=== PATIENT | female | born 1950 | race Caucasian/White ===

== ENCOUNTER 2019-04-10 07:42 | Day surgery (SDC) | payer SELFPAY ==
[2019-04-05 11:10] LABS: Hematocrit 36.8 % (37-47); Hemoglobin 12.6 g/dL (12.0-15.0); Mean Corp Hgb Conc 34.2 g/dL (32-36); Mean Corpuscular Hgb 31.7 pg (27.0-32.0); Mean Corpuscular Volume 92.7 fL (81-99); Mean Platelet Vol. 7.9 fl (6.2-12.0); Platelet Count 129 K/mm3 (150-450); RBC Distribution Width CV 13.2 % (11.6-14.6); RBC Distribution Width SD 45.1 fl (35.1-43.9); Red Blood Count 3.97 M/mm3 (4.2-5.4); White Blood Count 5.4 K/mm3 (4.4-11.0)
[2019-04-05 11:18] LABS: International Normalized Ratio 1.1; Prothrombin Time (Protime)PT. 13.9 SECONDS (11.7-14.9)
[2019-04-05 11:19] LABS: Partial Thromboplast Time 30.9 Seconds (24.1-36.2)
[2019-04-05 11:33] LABS: AST(SGOT) 11 U/L (15-37); Alanine Aminotransfer ALT/SGPT 12 U/L (13-56); Albumin, Serum 3.7 g/dL (3.2-5.0); Alkaline Phosphatase 58 U/L (45-117); Anion Gap 3 (5-15); BUN 13 mg/dL (7-18); BUN/Creat Ratio 20.4 RATIO (10-20); Chloride 107 mmol/L (98-107); Creatinine, Serum 0.64 mg/dL (0.55-1.02); EST Glomerular Filtration Rate 99 mL/min (>60); Est Glom Filt Rate - Afr Amer 120 mL/min (>60); Globulin 3.8 g/dL (2.2-4.2); Glucose 87 mg/dL (74-106); Potassium 3.8 mmol/L (3.5-5.1); Protein, Total 7.5 g/dL (6.4-8.2); Sodium Level 138 mmol/L (136-145)
--- NOTE | 2019-04-09 19:25 | HP.PCM_ITS ---
History and Physical Date of Admission: 04/10/19 Surgical History and Physical Latasha Browne, a 68 year old female 0 0 0 0 2, presents for Vaginal Hysterectomy and AP Repair on april 10, 2019 at 10:00. -- Pelvic Pressure and Low Back Pain -- Bulge from vagina which began 6mos ago. Latasha claims it started gradually and has been present constantly for 6 months. It occurs all the time. It is located in the vagina. Latasha characterizes the quality not painful. Severity is severe and worsening. It is aggravated by any activity. Associated signs and symptoms are bulge from vagina. MEDICATIONS HISTORY: Current medications prescribed by our practice are: 1. Estrace 0.01% (0.1 mg/gram) vaginal cream, one half gram per vagina twice weekly at ALLERGIES: No Known Drug Allergies Infections - Chicken pox childhood Illnesses - Arthritis Accidents - None Hospitalizations - see surgery Review of Systems: GENERAL - Denies fever, or chills SKIN - Denies skin changes EYES - Denies visual changes EARS - Denies difficulty hearing NOSE - Denies nasal congestion or bleeding MOUTH - Denies sore throat or difficulty swallowing NECK - Denies pain or swelling RESPIRATORY - Denies shortness of breath or wheezing CARDIOVASCULAR - Denies palpitations or chest pain GASTROINTESTINAL - Denies nausea, vomiting, diarrhea, constipation GENITOURINARY - Denies dysuria, frequency of urination, incontinence of urine MUSCULOSKELETAL - Denies joint or muscle pain NEUROLOGICAL - Denies localized numbness or weakness PSYCHIATRIC - Denies depression or anxiety ENDOCRINE - Denies heat or cold intolerance, weight loss or gain HEMATO-IMMUNOLOGIC - Denies excesive bleeding with cuts SOCIAL HISTORY: Alcohol Use - denies drinking Smoking - denies smoking Diet - balanced Diet Lifestyle - moderate stress lifestyle and Exercise - minimal Seat Belt Use - most of the time Employer - Unemployed Job Description - Housewife Illicit Drug Use - denies use of street drugs Sexual Activity - Spouse-Sig Other Name - Tavares Spouse-Sig Other Occupation - [employer] Children Name(s) - 2 Children adopted Control - postmenopausal FAMILY HISTORY: non-contributory MENSTRUAL HISTORY: LMP Known?- Postmenopausal PAST PREGNANCIES: Total Pregnancies - 0; Full Term Pregnancies - 0; Premature - 0; Abortions, Rand nery - 0; Abortions, Spontaneous - 0; Ectopics - 0; Multiple Births - 0; Living Children - 2 SURGICAL HISTORY: 1. Open Heart surgery to repair holes in heart 2. Laparoscopy ; Dr Stevens 3. Appendectomy 4. Benign mass removed from Rt armpit 5. Tonsillectomy PHYSICAL EXAM BP- 140/74 Sitting, Right arm, regular cuff Weight- 127.16029 lbs Height- 62 inch BMI:23.28 CONSTITUTIONAL - NAD, well nourished, and well developed SKIN - No rash, lesions, or ulcers HEENT - Normocephalic, PERRLA, EOMI NECK - No nodes, no nuchal rigidity and thyroid normal size and texture LYMPH NODES - Palpation of lymph nodes in neck and groins within normal limits LUNGS - CTA x2 without wheezes, crackles or rales CARDIAC - Regular rate and rhythm without rubs, murmurs, or gallops BREAST - No dominant masses, no tenderness, no axillary adenopathy, no nipple discharge, no skin changes ABDOMEN - Without hepatosplenomegaly, distention, masses, rebound, or guarding; normal bowel sounds; no hernias EXTREMITIES - No edema or calf tenderness NEUROLOGICAL - Cranial nerves II-XII grossly intact PSYCHIATRIC - A and O to time, place, person, mood and affect External Genital Vagina - non-tender without lesions Urethra/Urethral Meatus - non-tender Bladder - non-tender Vagina - loss of rugae and cystocele to introitus; mild rectocele Cervix - without cervical motion tenderness and has normal size and features without evident lesions and protrudes to within 2-3 cm of introitus Uterus - 5-6 cm in size, mobile and nontender Adnexa - clear without masses or tenderness ASSESSMENT/PLAN: 1. Uterovaginal Prolapse, Incomplete Discussed options including expectant management, pessary use, or proceeding with Vag Hyst and anterior (possible posterior) repair. Pt desires the surgery. Has used intravaginal estrogen.
[2019-04-10] VITALS (10 sets, daily range): BP systolic 97–121; BP diastolic 58–66; PULSE 55–72; RESP 14–16; TEMP 36.3–36.9; O2SAT 92–98; BMI 23.0
--- NOTE | 2019-04-10 10:10 | HYST_PTH ---
PATIENT: BHARAT HOLMAN LOC: [facility] [place] U#:[id number] AGE/SX: 68/F ROOM: RE04/10/[address]: Dr. Justo Valenzuela MD : [id number] BED: DIS: 04/11/2019 SPEC #: [id number] RECD: 04/10/19 13:33 STATUS: MICHELLE REOttoniel #: [id number] NEPTALI: 04/10/19 10:[address]: Justo Valenzuela DEPT: SURGICAL PATHOLOGY RECD BY: Lane Vaughn ENTERED: 04/10/19 13:39 SP TYPE: HYSTERECT OTHR DR: Dr. Odell Lew MD Tissues: Uterus, NOS Procedures: Surgery Specimen Level V HEADER OPERATION: Vaginal hysterectomy, anterior repair PRE-OP DIAGNOSIS: Incomplete uterovaginal prolapse, cystocele TISSUE SUBMITTED: Uterus, cervix, vaginal mucosa MICROSCOPIC DIAGNOSIS Uterus, hysterectomy: Cervix - squamous metaplasia and mild chronic inflammation. Endometrium - weakly proliferative to inactive endometrium. Focal simple and cystic hyperplasia without atypia. Moderate to marked chronic endometritis. Myometrium - Microscopic leiomyoma, capillary hemangioma and focal adenomyosis. Vaginal mucosa, anterior and posterior repair: Hyperkeratosis and minimal chronic inflammation. AM:vesta 04/12/19 COMMENT Case has been reviewed in consultation with Dr. Sheppard who concurs with the above diagnosis. IDC:SJ MICROSCOPIC DESCRIPTION Slides are reviewed. GROSS DESCRIPTION Received in fixative is one container labeled with the patient's name and designated uterus, cervix, vaginal mucosa. The specimen consists of a hysterectomy specimen consisting of uterus with cervix and detached pieces of mucosal tissue. The uterus with cervix weighs 30 gm and measures 9 x 3 x 2 cm. The serosal surface is cain, glistening. The ectocervical mucosa is unremarkable. The external os is oval in contour. The anterior endocervical canal measures up to 5 cm in length and the posterior endocervical canal measures up to 3.5 cm in length. The endocervical mucosa is cain, glistening and unremarkable. The triangular endometrial cavity measures 3 cm in length and up to 2 cm in width. The endometrium is congested without any mass lesion and measures <0.1 cm in thickness. Sections of the uterine wall do not reveal any mass lesion and it measures up to 1 cm in thickness. Also present in the container are two detached pieces of mucosal tissue measuring in aggregate 7 x 5 x 0.4 cm. No mucosal lesion is identified. Multiple instrumentation forrest are noted. Court Transcriber sections are submitted in seven cassettes as follows: 1 - anterior cervix, 2 - posterior cervix, 3 & 4 - anterior uterine wall, 5 & 6 - posterior uterine wall, 7 - detached mucosal tissue. / GORGE:vesta 04/10/19 More sections are submitted in two cassettes as follows: 8 - rest of the anterior endometrium, 9 - rest of the posterior endometrium. / GORGE:vesta 04/11/19 TC:5 CPT: 08328
--- NOTE | 2019-04-10 10:17 | PCM.OPRPT ---
Report of Operation Date of Procedure: 04/10/19 Pre-Operative Diagnosis: Incomplete Uterovaginal Prolapse, Cystocele Post-Operative Diagnosis: Incomplete Uterovaginal Prolapse, Cystocele Surgery/Procedure Performed:: Vaginal Hysterectomy and Anterior Repair Description of Surgical Findings:: 7 cm uterus with cervix protruding to the introitus. Cystocele which protruded to the introitus. Minimal rectocele. comic book writer: Nathan Hummel comic book writer: Pearl Palacios Type of Anesthesia:: General - Endotracheal Anesthesiologist: Devika Pollack Specimen's removed: Uterus and vaginal mucosa Drains: Toth to straight drain Estimated Blood Loss (mL): 100 cc Fluids Replaced: Crystalloid Description of Procedure: Surgeon: Justo Valenzuela MD, FACOG Indications: This is a 68-year-old patient who is been having problems with symptomatic uterovaginal prolapse. Conservative measures have not been helpful. Given this the patient desires that we proceed the above procedure. She has been counseled regarding the risk and indications of this procedure including the possibility of bleeding, infection, and injury to surrounding structures such as bowel bladder. All questions were answered. Procedure: Patient was taken to the operating room where after induction of general anesthesia she was placed in the dorsal lithotomy position and prepped and draped in the usual sterile fashion. A Toth catheter was placed. Anterior cervix was grasped with a tenaculum and anterior cervix circumscribed with cautery on a setting of 35 W coagulation. Anterior vaginal mucosa was undermined and anterior peritoneum was entered. The posterior aspect of the cervix was circumscribed with a knife and posterior peritoneum easily entered. Progressive bites were taken on either side of the uterine cervix and each pedicle ligated with 0 Vicryl suture. Superior pedicles were ligated ?2 with 0 Vicryl suture and sidewall pedicles were examined and oversewn where necessary with [id number] 0 Vicryl suture to achieve hemostasis. Posterior vaginal cuff was oversewn with running locked 0 Vicryl suture. Hemostasis was noted and peritoneum was closed in a pursestring fashion incorporating superior pedicles into the stitch. Attention was turned toward the anterior repair portion of the procedure. Anterior vaginal mucosa was undermined and divided and then imbricated toward the midline with interrupted 0 Vicryl sutures. Vaginal mucosa was trimmed and then closed with interrupted 2-0 chromic suture. Vaginal cuff was then closed front to back with interrupted [id number] 0 Vicryl suture. Hemostasis was noted. Patient was examined and minimal rectocele was noted. Toth catheter was again opened and clear yellow urine was noted. Vagina was packed with iodoform tape. Patient tolerated the procedure well was taken to recovery room in satisfactory condition; sponge instrument and needle counts were all reportedly correct. Estimated blood loss for the case was approximately 100 cc. Cefotan 2 g IV was given prior to beginning the operative procedure. There were no apparent complications of the surgery. Specimen to pathology was uterus and vaginal mucosa. Grafts/Implants Used: None - Complications None - Admit VTE Documentation VTE Present on Admission: Yes VTE Mechan Device Prophylaxis: SCD's VTE Pharm Prophylaxis ordered?: Yes
--- NOTE | 2019-04-10 10:21 | DCINST_ITS ---
Discharge Diet: No Restrictions Discharge Activity: Return to Normal Activity, May Not Drive - while taking narcotic pain medications., May Shower May resume sexual activity in: 6-8 weeks Call your doctor if your incision/area has: Continuous Slow Oozing, Sudden Increased Bleeding, Increased Pain/ Swelling, Increased Redness, Foul Smelling Discharge Call your doctor if you observe: Fever of 101 or Higher, Inability to urinate, Inability to have a bowel movement, Using more than one pad per hour Allergies/Adverse Reactions: Allergies No Known Allergies Allergy (Verified 04/03/19 09:10) Medications to take at Discharge Estradiol [Estrace Vaginal Cream] 1 dose VAGINAL MOTU 04/03/19 Life Advantage 4 tab PO DAILY 04/03/19 Yeast Extract 2 tab PO DAILY 04/03/19 Docusate Sodium [Colace] 100 mg PO BID PRN PRN #60 cap 04/10/19 Oxycodone [Oxyir] 5 mg PO Q6H PRN PRN 7 Days #20 tab 04/10/19 The following prescriptions were given: Docusate Sodium [Colace] 100 mg PO BID PRN PRN #60 cap PRN Reason: Constipation Prescription Printed Oxycodone [Oxyir] 5 mg PO Q6H PRN PRN 7 Days #20 tab PRN Reason: Severe Pain (6-06/29) Prescription Printed Primary Care Physician: Odell Lew [Primary Care Provider] - Test Results: Test results from this visit will be discussed in further detail at your follow- up appointment, if applicable. Please Follow Up With: Justo Valenzuela MD When: 2 to 3 weeks
[2019-04-10] MEDS: HYDROmorphone 1 MG/ML Syringe 0.5 MG IV (14:41)
[2019-04-10] MEDS: Dextrose 5%-Lactated Ringers 1,000 ML 125 ML IV ×2 (14:52→22:04)
[2019-04-10] MEDS: 0.9% NaCl Peripheral Flush Adult/Peds IV (18:10)
[2019-04-10] MEDS: Ketorolac 30 MG/ML Syringe IV (18:10)
[2019-04-10] MEDS: Enoxaparin 30 MG/0.3 ML Syringe SC (18:10)
[2019-04-10] MEDS: oxyCODONE 5 MG Tablet PO (22:04)
[2019-04-11 00:20] VITALS: BP 104/52; PULSE 73; RESP 18; TEMP 36.9; O2SAT 96
[2019-04-11] MEDS: Ketorolac 30 MG/ML Syringe IV ×2 (01:19→06:20)
[2019-04-11 05:32] LABS: Hematocrit 31.6 % (37-47); Hemoglobin 10.6 g/dL (12.0-15.0); Mean Corp Hgb Conc 33.5 g/dL (32-36); Mean Corpuscular Hgb 31.3 pg (27.0-32.0); Mean Corpuscular Volume 93.2 fL (81-99); Mean Platelet Vol. 7.8 fl (6.2-12.0); Platelet Count 114 K/mm3 (150-450); RBC Distribution Width CV 13.2 % (11.6-14.6); RBC Distribution Width SD 45.1 fl (35.1-43.9); Red Blood Count 3.39 M/mm3 (4.2-5.4)
[2019-04-11 05:59] LABS: Creatinine, Serum 0.84 mg/dL (0.55-1.02); EST Glomerular Filtration Rate 72 mL/min (>60); Est Glom Filt Rate - Afr Amer 87 mL/min (>60)
[2019-04-11] MEDS: Dextrose 5%-Lactated Ringers 1,000 ML 125 ML IV (06:20)
[2019-04-11 06:41] VITALS: BP 106/50; PULSE 71; RESP 18; TEMP 37.2; O2SAT 94
[2019-04-11 07:52] VITALS: O2SAT 93
--- NOTE | 2019-04-11 08:31 | PCM.PN.OB ---
Subjective: Patient without complaints. Tolerating diet well. Positive flatus. Minimal vaginal bleeding. Not yet able to void on own as Toth recently removed. - Physical Exam Vital Signs Temp Pulse Resp BP Pulse Ox 99 F 71 18 106/50 L 93 04/11/19 06:41 04/11/19 06:41 04/11/19 06:41 04/11/19 06:41 04/11/19 07:52 Oxygen Delivery Method Room Air Weight: 125 lb 14.143 oz Body Mass Index (BMI) 23.0 Intake and Output for Last 24 Hours 04/09/19 04/10/19 04/11/19 23:59 23:59 23:59 Intake Total 2757 / 2757 808 / 808 Output Total 1190 / 1190 425 / 425 Balance 1567 / 1567 383 / 383 Laboratory Tests Past 24 Hrs 04/11/19 04/11/19 05:08 05:08 WBC 10.0 RBC 3.39 L Hgb 10.6 L Hct 31.6 L MCV 93.2 MCH 31.3 MCHC 33.5 RDW Std Deviation 45.1 H RDW Coeff of Yessenia 13.2 Plt Count 114 L MPV 7.8 Creatinine 0.84 Estim Creat Clear Calc 51.40 Est GFR (MDRD) Af Amer 87 Est GFR (MDRD) Non-Af 72 Vaginal pack is out with minimal vaginal bleeding. Hemoglobin and creatinine okay. Medical Necessity - Tobacco Use Smoking Status: Never smoker Tobacco Use: Non-smoker Assessment/Plan Doing well postoperative day #1 status post vaginal hysterectomy and anterior repair. Will release to home with routine instructions after able to void on own.
[2019-04-11] MEDS: oxyCODONE 5 MG Tablet PO (13:56)
[2019-04-11] MEDS: Ketorolac 10 MG Tablet PO ×2 (13:56→17:53)
[2019-04-11 13:59] VITALS: BP 112/61; PULSE 69; RESP 14; TEMP 36.4; O2SAT 98
[2019-04-11] MEDS: Nitrofurantoin Macrocrystals 100 MG Capsule PO (17:52)
== END 2019-04-11 18:34 | disposition home or self-care (01) ==
LOC: SDC 07:43 → AC 07:44 → MS3 12:59
PROVIDERS: Family Provider Family Medicine; PCP Family Medicine; Referring Provider Obstetrics & Gynecology; Visit Provider Obstetrics & Gynecology
PROC: (CPT 58260; principal; 2019-04-10 09:50)
DX: N81.2 Incomplete uterovaginal prolapse (principal); M19.90 Unspecified osteoarthritis, unspecified site; M54.5 Low back pain
CPT/HCPCS: 00940; 57240; 58260; 36415; 80053; 82565; 85027; 85610; 85730; 86850; 86900; 88307; 93005; J7120; A4216; J2405